=== PATIENT | female | born 1935 | race African-American/Black ===

== ENCOUNTER 2020-04-29 09:57 | Observation (INO) | payer MEDICARE ==
[~2020-04-29] VITALS: Ht 175.3 cm; Wt 72.1 kg
[2020-04-29 11:29] LABS: CLARITY,URINE CLEAR (CLEAR); COLOR,URINE YELLOW (YELLOW); KETONES,URINE TRACE (NEGATIVE); LEUKOCYTE ESTERASE ,URINE SMALL (NEGATIVE); NITRITE,URINE NEGATIVE (NEGATIVE); PROTEIN,URINE DIPSTICK TRACE (NEGATIVE); URINE UROBILINOGEN 1 mg/dL (0.2 - 1)
[2020-04-29 12:00] LABS: BACTERIA,URINE FEW /HPF; RBC,URINE 0-5 /HPF (0-5)
[2020-04-29 12:02] LABS: EPITHELIAL CELLS,URINE FEW /LPF; TRICHOMONAS,URINE FEW
[2020-04-29 12:02] LABS: BASOPHILS # (AUTO) 0.1 (0.0-0.1); BASOPHILS % 0.7 % (0.0-1.0); EOSINOPHILS # (AUTO) 0.3 (0.0-0.4); EOSINOPHILS % 2.2 % (0.0-6.0); HEMATOCRIT 41.4 % (34.2-44.1); HEMOGLOBIN 13.9 g/dL (12.0-16.0); LYMPHOCYTES # (AUTO) 2.4 (1.0-3.2); LYMPHOCYTES % 20.3 % (18.0-39.1); MEAN CORPUSCULAR HEMOGLOBIN 31.4 pg (28-32); MEAN CORPUSCULAR HGB CONC 33.6 g/dL (31-35); MEAN CORPUSCULAR VOLUME 93.7 fL (81-99); MONOCYTES # (AUTO) 0.6 (0.2-0.8); NEUTROPHILS # (AUTO) 8.5 (2.1-6.9); NEUTROPHILS % 71.3 % (38.7-80.0); PLATELET COUNT 260 x10e3/uL (140-360); RED BLOOD COUNT 4.42 x10e6/uL (3.6-5.1); RED CELL DISTRIBUTION WIDTH 12.1 % (11.7-14.4)
[2020-04-29 12:03] LABS: MUCUS,URINE FEW (RARE)
[2020-04-29 12:18] LABS: ALBUMIN 3.7 g/dL (3.5-5.0); ALBUMIN/GLOBULIN RATIO 1.2 (0.8-2.0); ANION GAP 14.7 mmol/L (8-16); CALCIUM 9.5 mg/dL (8.4-10.2); CREATININE, SERUM 1.32 mg/dL (0.57-1.11); LIPASE 67 U/L (8-78); POTASSIUM 3.7 mmol/L (3.5-5.1)
[2020-04-29] MEDS ORDERED: FENTANYL CITRATE/PF 100MCG/2 ML INJ IV ONE (12:45)
[2020-04-29] MEDS: SODIUM CHLORIDE 0.9% 1000ML 1,000 ML IV SCH (13:10)
[2020-04-29] MEDS ORDERED: HYDRALAZINE HCL 20 MG/ML VIAL IV PRN (13:45)
[2020-04-29] MEDS ORDERED: ACETAMINOPHEN 650 MG SUPP PR PRN (13:45)
[2020-04-29] MEDS ORDERED: ONDANSETRON HCL INJ 2MG/ML 2ML 2 MG/ML VIAL IV PRN (13:45)
[2020-04-29] MEDS ORDERED: MORPHINE SULFATE INJ 2 MG/ML SYR IV PRN (15:15)
[2020-04-29] MEDS: CEFTRIAXONE SOD 1 GM in SODIUM CHLORIDE 0.9% 50ML 50 ML IV SCH (15:36)
[2020-04-29] MEDS: FAMOTIDINE 20 MG/2 ML VIAL IV SCH (16:15)
[2020-04-29] MEDS ORDERED: FAMOTIDINE 20 MG/2 ML VIAL IV SCH (17:00)
[2020-04-29] MEDS ORDERED: TIMOPTIC 0.5%1 EACH OU (17:57)
[2020-04-29] MEDS ORDERED: SIMVASTATIN20 MG PO (17:57)
[2020-04-29] MEDS ORDERED: AMLODIPINE BESYL5 MG PO (17:57)
[2020-04-29] MEDS ORDERED: LISINOPRIL-HCT1 EACH PO (17:57)
[2020-04-30] MEDS: SODIUM CHLORIDE 0.9% 1000ML 1,000 ML IV SCH ×3 (05:36→20:39)
[2020-04-30 05:41] LABS: BASOPHILS # (AUTO) 0.1 (0.0-0.1); BASOPHILS % 0.8 % (0.0-1.0); EOSINOPHILS # (AUTO) 0.4 (0.0-0.4); EOSINOPHILS % 3.3 % (0.0-6.0); HEMATOCRIT 35.6 % (34.2-44.1); HEMOGLOBIN 11.8 g/dL (12.0-16.0); LYMPHOCYTES # (AUTO) 3.7 (1.0-3.2); LYMPHOCYTES % 35.3 % (18.0-39.1); MEAN CORPUSCULAR HEMOGLOBIN 31.6 pg (28-32); MEAN CORPUSCULAR HGB CONC 33.1 g/dL (31-35); MEAN CORPUSCULAR VOLUME 95.2 fL (81-99); MONOCYTES # (AUTO) 0.7 (0.2-0.8); NEUTROPHILS # (AUTO) 5.6 (2.1-6.9); NEUTROPHILS % 53.3 % (38.7-80.0); PLATELET COUNT 210 x10e3/uL (140-360); RED BLOOD COUNT 3.74 x10e6/uL (3.6-5.1); RED CELL DISTRIBUTION WIDTH 12.2 % (11.7-14.4)
[2020-04-30 06:06] LABS: CHOL/HDL RATIO 3.3 (3.0-3.6); MAGNESIUM 1.9 MG/DL (1.3-2.1); PHOSPHORUS 2.9 MG/DL (2.3-4.7)
[2020-04-30 06:14] LABS: THYROID STIMULATING HORMONE 0.729 uIU/mL (0.350-4.940)
[2020-04-30 06:23] LABS: ANION GAP 9.8 mmol/L (8-16); BLOOD UREA NITROGEN 9 mg/dL (7-26); BUN/CREATININE RATIO 9 (6-25); CARBON DIOXIDE 25 mmol/L (22-29); CHLORIDE 110 mmol/L (98-107); CREATININE, SERUM 0.96 mg/dL (0.57-1.11); EST GLOMERULAR FILTRATION RATE > 60 ML/MIN (60-); GLUCOSE 86 mg/dL (74-118); POTASSIUM 3.8 mmol/L (3.5-5.1); SODIUM 141 mmol/L (136-145)
[2020-04-30 06:24] LABS: CALCIUM 7.9 mg/dL (8.4-10.2)
[2020-04-30] MEDS: FAMOTIDINE 20 MG/2 ML VIAL IV SCH (09:32)
[2020-04-30] MEDS: TIMOLOL MALEATE 0.5% OPTH DRP 5 ML BTL OU SCH ×2 (09:33→17:00)
[2020-04-30] MEDS: AMLODIPINE BESYLATE 5 MG TAB PO SCH (09:33)
[2020-04-30] MEDS: CEFTRIAXONE SOD 1 GM in SODIUM CHLORIDE 0.9% 50ML 50 ML IV SCH (16:00)
[2020-04-30 17:31] VITALS: BP 127/76
[2020-04-30 17:40] VITALS: BP 127/76
[2020-04-30 20:40] VITALS: BP 170/81
[2020-04-30 21:00] VITALS: BP 170/81
[2020-04-30] MEDS ORDERED: SIMVASTATIN 20 MG TAB PO SCH (21:00)
[2020-05-01 01:00] VITALS: BP 128/66
[2020-05-01 04:00] VITALS: BP 150/69
[2020-05-01 07:55] VITALS: BP 144/59
[2020-05-01] MEDS: TIMOLOL MALEATE 0.5% OPTH DRP 5 ML BTL OU SCH (08:54)
[2020-05-01] MEDS: AMLODIPINE BESYLATE 5 MG TAB PO SCH (08:54)
[2020-05-01] MEDS: FAMOTIDINE 20 MG/2 ML VIAL IV SCH (08:54)
[2020-05-01] MEDS ORDERED: CEFUROXIME250 MG PO (09:39)
[2020-05-01 09:56] VITALS: BP 174/87
[2020-05-01] MEDS ORDERED: ONDANSETRON HCL 4 MG ORAL DISINTEGRATING TAB PO PRN (10:45)
[2020-05-02] MEDS ORDERED: FAMOTIDINE 20 MG TAB PO SCH (07:30)
== END 2020-05-01 11:04 | disposition home or self-care (01) ==
LOC: ER 10:27 → ERHOLD 12:42 → MED/SURG3 04-30 17:26
PROVIDERS: ADMIT Internal Medicine; ATTEND Internal Medicine
DX: R10.13 Epigastric pain (principal); N17.9 Acute kidney failure, unspecified; I10 Essential (primary) hypertension; E78.5 Hyperlipidemia, unspecified; Z82.49 Family history of ischemic heart disease and other diseases of the circulatory system; Z82.61 Family history of arthritis; Z84.89 Family history of other specified conditions; N28.1 Cyst of kidney, acquired; Z20.822 Contact with and (suspected) exposure to COVID-19
CPT/HCPCS: 36415 ×2; 74183; 76705; 80048; 80053; 80061; 81001; 83036; 83690; 83735; 84100; 84443; 84484; 85025 ×2; 87086; 93005; 99284; G0378 ×3; J0360; J0696; J3010; J7030 ×2; U0002

== ENCOUNTER 2022-05-17 09:38 | Emergency (ER) | payer MEDICARE, OTHER ==
[~2022-05-17] VITALS: Ht 175.3 cm; Wt 72.1 kg
[~2022-05-17 09:38] MED LIST: ACETAMINOPHEN325 M1 PO; AMLODIPINE BESYL5 MG PO; CARAFATE1 GM PO; CEFUROXIME250 MG PO; LISINOPRIL-HCT1 EACH PO; SIMVASTATIN20 MG PO; TIMOPTIC 0.5%1 EACH OU
[2022-05-17] MEDS ORDERED: SODIUM CHLORIDE 0.9% 1000ML 1,000 ML IV STA (10:02)
[2022-05-17] MEDS ORDERED: MECLIZINE HCL 12.5 MG TAB PO ONE (10:15)
[2022-05-17 10:59] LABS: BASOPHILS # (AUTO) 0.1 (0.0-0.1); BASOPHILS % 0.8 % (0.0-1.0); EOSINOPHILS # (AUTO) 0.2 (0.0-0.4); EOSINOPHILS % 2.4 % (0.0-6.0); HEMATOCRIT 44.1 % (34.2-44.1); HEMOGLOBIN 14.5 g/dL (12.0-16.0); LYMPHOCYTES # (AUTO) 2.6 (1.0-3.2); MEAN CORPUSCULAR HEMOGLOBIN 31.3 pg (28-32); MEAN CORPUSCULAR HGB CONC 32.9 g/dL (31-35); MONOCYTES # (AUTO) 0.6 (0.2-0.8); MONOCYTES % 6.1 % (4.4-11.3); NEUTROPHILS # (AUTO) 6.5 (2.1-6.9); NEUTROPHILS % 64.3 % (38.7-80.0); PLATELET COUNT 206 x10e3/uL (140-360); RED BLOOD COUNT 4.64 x10e6/uL (3.6-5.1); RED CELL DISTRIBUTION WIDTH 12.5 % (11.7-14.4)
[2022-05-17 11:20] LABS: ALBUMIN 3.7 g/dL (3.5-5.0); ALBUMIN/GLOBULIN RATIO 1.1 (0.8-2.0); ANION GAP 12.5 mmol/L (8-16); CALCIUM 9.3 mg/dL (8.4-10.2); CREATININE, SERUM 1.32 mg/dL (0.57-1.11); MAGNESIUM 2.2 MG/DL (1.3-2.1); POTASSIUM 3.5 mmol/L (3.5-5.1)
[2022-05-17 11:26] LABS: INR 0.97; PARTIAL THROMBOPLASTIN TIME 30.1 seconds (23.8-35.5); PROTHROMBIN TIME 13.4 seconds (11.9-14.5)
[2022-05-17 11:29] LABS: CREATINE KINASE MB 1.1 ng/mL (0-5.0)
[2022-05-17] MEDS ORDERED: MECLIZINE HCL25 MG PO (12:25)
== END 2022-05-17 13:00 | disposition home or self-care (01) ==
LOC: ER 09:41
DX: R42 Dizziness and giddiness (principal); I10 Essential (primary) hypertension; E78.5 Hyperlipidemia, unspecified
CPT/HCPCS: 0223U; 36415; 70450; 71045; 80053; 82550; 82553; 83735; 84484; 85025; 85610; 85730; 93005; 99284; J7030; J8597